=== PATIENT | female | born 1995 | race Two or more races ===

== ENCOUNTER 2023-08-16 17:34 | Emergency (ER) | payer MEDICAID, OTHER ==
[~2023-08-16] VITALS: Ht 157.5 cm; Wt 78.1 kg
[2023-08-16 20:45] LABS: Basophils # (auto) 0 10 ^3/uL (0-0.2); Basophils % (auto) 0.3 % (0.0-2.0); Eosinophils # (auto) 0.3 10 ^3/uL (0-0.8); Eosinophils % (auto) 2.7 % (0.0-7.0); Hematocrit 36.8 % (36.0-46.0); Hemoglobin 11.8 g/dL (12.2-16.2); Lymphocytes # (auto) 3.7 10 ^3/uL (0.4-5.4); Lymphocytes % (auto) 32.8 % (10.0-50.0); Mean Corpuscular Hemoglobin 25.1 pg (28.0-32.0); Mean Corpuscular Hgb Conc. 32.1 g/dL (32.0-36.0); Mean Corpuscular Volume 78.1 fL (80.0-100.0); Monocytes # (auto) 0.9 10 ^3/uL (0-1.3); Neutrophils # (auto) 6.3 10 ^3/uL (1.6-8.6); Neutrophils % (auto) 56.2 % (37.0-80.0); Red Blood Cells 4.72 10^6/uL (4.0-5.20); Red Cell Distribution Width 15.9 % (11.8-14.3); White Blood Cell 11.1 10^3/uL (4.4-10.8)
[2023-08-16 20:55] VITALS: BP 108/66; RESP 17; TEMP 97.9; O2SAT 98
[2023-08-16 21:02] LABS: Alanine Aminotransferase 19 U/L (7-40); Albumin 4.5 g/dL (3.2-4.8); Alkaline Phosphatase 78 U/L (46-116); Anion Gap 8 (5-15); Aspartate Aminotransferase 11 U/L (13-40); BUN/Creatinine Ratio 12.1 (10.0-20.0); Bilirubin, Total 0.3 mg/dL (0.2-1.0); Blood Urea Nitrogen 7 mg/dL (9-23); Calcium 9.7 mg/dL (8.5-10.1); Carbon Dioxide 26 mmol/L (20-30); Chloride 106 mmol/L (98-107); Glucose 76 mg/dL (74-106); Potassium 4.1 mmol/L (3.5-5.1); Sodium 140 mmol/L (136-145)
[2023-08-16 21:03] LABS: Total Protein 6.7 g/dL (5.7-8.2)
[2023-08-16] MEDS: ONDANSETRON ODT 4 MG TAB PO ONE (21:30)
[2023-08-16] MEDS: HYDROcodone-ACET 5/325MG TAB PO ONE (21:30)
[2023-08-16 22:54] LABS: Urine Bacteria NONE SEEN /hpf (None Seen); Urine Blood TRACE /uL (Negative); Urine Clarity Clear (Clear); Urine Color Colorless (Yellow); Urine Mucus FEW (None Seen); Urine Protein, UAD Negative (Negative); Urine Specific Gravity 1.012 (1.001-1.035); Urine Urobilinogen Normal (Negative); Urine WBC 3 /hpf (0 - 5); Urine pH 5.5 (5.0-8.0)
[2023-08-16] MEDS ORDERED: IBUP1TAB5 PO (23:21)
[2023-08-16] MEDS ORDERED: ZOFR4T PO (23:21)
[2023-08-16] MEDS ORDERED: NITR-87 PO (23:21)
[2023-08-16] MEDS ORDERED: MECL25CH85 PO (23:21)
[2023-08-16 23:26] VITALS: PULSE 60
== END 2023-08-16 23:26 | disposition home or self-care (01) ==
LOC: ER 17:34
DX: N39.0 Urinary tract infection, site not specified (principal); R42 Dizziness and giddiness; R51.9 Headache, unspecified
CPT/HCPCS: 36415; 70450; 80053; 81001; 81025; 84484; 85025; 93005; 99285; Q0162